=== PATIENT | male | born 1935 | race Caucasian/White ===

== ENCOUNTER 2020-09-23 20:38 | Emergency (ER) | payer MEDICARE ==
[~2020-09-23] VITALS: Ht 198.1 cm; Wt 84.1 kg
[~2020-09-23 20:38] MED LIST: NO HOME MEDS
[2020-09-23 20:53] VITALS: BP 131/69
[2020-09-23 21:18] LABS: BASOPHILS % (AUTO) 0.6 % (0-1); EOSINOPHILS # (AUTO) 0.3 X10'3 (0-0.9); EOSINOPHILS % (AUTO) 4.9 % (0-6); HEMATOCRIT 37.8 % (42.0-52.0); HEMOGLOBIN 12.3 g/dl (14.0-17.9); LYMPHOCYTES % (AUTO) 17.6 % (21-51); MEAN CORPUSCULAR HEMOGLOBIN 32.2 PG (27.0-31.0); MEAN CORPUSCULAR HGB CONC 32.7 g/dL (33.0-36.5); MEAN CORPUSCULAR VOLUME 98.6 FL (78-98); MONOCYTES # (AUTO) 0.5 X10'3 (0-0.9); MONOCYTES % (AUTO) 8.7 % (2-12); NEUTROPHILS # (AUTO) 4.1 X10'3 (1.8-7.7); NEUTROPHILS % (AUTO) 68.2 % (42-75); PLATELET COUNT 240 X10'3 (140-440); RED BLOOD COUNT 3.83 X10'6 (4.70-6.10); RED CELL DISTRIBUTION WIDTH 13.9 % (11.5-14.5); WHITE BLOOD COUNT 5.9 X10'3 (4.5-11.0)
[2020-09-23 21:30] LABS: ALANINE AMINOTRANSFERASE 24 U/L (12-78); ALBUMIN 3.3 G/DL (3.4-5.0); ALBUMIN/GLOBULIN RATIO 0.8 (1.1-1.5); ALKALINE PHOSPHATASE 165 IU/L (46-116); ANION GAP 9 (8-16); ASPARTATE AMINO TRANSFERASE 20 U/L (10-37); BILIRUBIN,TOTAL 0.4 MG/DL (0.1-1.0); BLOOD UREA NITROGEN 33 MG/DL (7-18); BUN/CREATININE RATIO 22.6 (5.4-32.0); CALCIUM 8.1 MG/DL (8.5-10.1); CHLORIDE 107 MMOL/L (99-107); CREATININE 1.46 MG/DL (0.60-1.10); GLUCOSE 99 MG/DL (70-104); LIPASE 154 U/L (73-393); POTASSIUM 4.5 MMOL/L (3.5-5.1); SODIUM 142 MMOL/L (135-145); TOTAL CARBON DIOXIDE 26.5 MMOL/L (24-32); TOTAL PROTEIN 7.4 G/DL (6.4-8.2); eGFR 46 ML/MIN
--- NOTE | 2020-09-23 22:53 | NUR ---
Pt had a stool, it was soft and formed and no liquid at all and did not smell like C diff. made aware that sample is not c diff worthy.
== END 2020-09-23 23:10 | disposition home or self-care (01) ==
LOC: ER 20:40
DX: R19.7 Diarrhea, unspecified (principal); Z98.890 Other specified postprocedural states
CPT/HCPCS: 36415; 80053; 83690; 85025; 99284

== ENCOUNTER 2022-03-02 09:50 | Outpatient (CLI) | payer MEDICARE ==
[~2022-03-02] VITALS: Ht 198.1 cm; Wt 90.7 kg
[~2022-03-02 09:50] MED LIST changes: +COLE1TAB2 PO; +FER325T PO; +LACT1CAP26 PO; +LISI10TA27 PO; -NO HOME MEDS
[2022-03-02 11:28] LABS: CLARITY,URINE CLEAR (Clear); COLOR,URINE YELLOW (Yellow); GLUCOSE, URINE NEGATIVE (Neg); KETONES,URINE NEGATIVE (Neg); LEUKOCYTE ESTERASE ,URINE NEGATIVE (Neg); NITRITES, URINE NEGATIVE (Neg); OCCULT BLOOD,URINE TRACE-INTACT (Neg); PROTEIN,URINE NEGATIVE (Neg); UROBILINOGEN,URINE 0.2 E.U/dL (0.2-1.0)
[2022-03-02 11:31] LABS: BASOPHILS % (AUTO) 0.7 % (0-1); EOSINOPHILS # (AUTO) 0.2 X10'3 (0-0.9); EOSINOPHILS % (AUTO) 4.2 % (0-6); LYMPHOCYTES # (AUTO) 0.8 X10'3 (1.1-4.8); MEAN CORPUSCULAR HEMOGLOBIN 32.7 PG (27.0-31.0); MEAN CORPUSCULAR HGB CONC 33.4 g/dL (33.0-36.5); MEAN PLATELET VOLUME 7.3 FL (7.4-10.4); MONOCYTES # (AUTO) 0.4 X10'3 (0-0.9); MONOCYTES % (AUTO) 8.2 % (2-12); NEUTROPHILS # (AUTO) 3.3 X10'3 (1.8-7.7); NEUTROPHILS % (AUTO) 69.9 % (42-75); PRE OP HEMATOCRIT 32.2 % (42.0-52.0); PRE OP PLATELET COUNT 210 X10'3 (140-440); RED BLOOD COUNT 3.28 X10'6 (4.70-6.10)
[2022-03-02 11:33] LABS: PRE OP HEMOGLOBIN 10.7 g/dL (14.0-17.9)
[2022-03-02 11:43] LABS: ALBUMIN 3.8 G/DL (3.4-5.0); ALKALINE PHOSPHATASE 70 IU/L (46-116); BLOOD UREA NITROGEN 30 MG/DL (7-18); BUN/CREATININE RATIO 19.2 (5.4-32.0); CALCIUM 8.7 MG/DL (8.5-10.1); CHLORIDE 110 MMOL/L (99-107); CREATININE 1.56 MG/DL (0.60-1.10); PRE OP ALT 19 U/L (30-65); PRE OP ANION GAP 8 (8-16); PRE OP AST 22 U/L (10-37); PRE OP BILIRUB, TOTAL 0.4 MG/DL (0.0-1.0); PRE OP GLUCOSE 88 MG/DL (70-104); PRE OP POTASSIUM 5.9 MMOL/L (3.4-5.1); PRE OP SODIUM 139 MMOL/L (135-145); TOTAL CARBON DIOXIDE 21.4 MMOL/L (24-32); TOTAL PROTEIN 7.6 G/DL (6.4-8.2); eGFR 42 ML/MIN
[2022-03-02 12:02] LABS: UA COLLECTION TYPE VOIDED
[2022-03-02 12:04] LABS: AMORPHOUS URATES 1+; BACTERIA,URINE NONE SEEN /HPF (Neg); RBC,URINE 0-2 /HPF (0-2); SQUAMOUS EPITHELIAL CELL,UR FEW /LPF (FEW); WBC,URINE NONE SEEN /HPF (0-4)
[2022-03-02 12:05] LABS: HYALINE CASTS 0-3 /LPF (NEGATIVE)
[2022-03-09] MEDS ORDERED: ringers solution, lacted 1,000 ML IV SCH (05:00)
[2022-03-09] MEDS ORDERED: famotidine 20mg tablet PO ONE (05:30)
[2022-03-09] MEDS ORDERED: ceFAZolin inj. 2,000 MG in dextrose 5%-water 100 ML IV ONE (05:30)
[2022-03-14] MEDS ORDERED: AMLO5TAB4 PO (15:23)
[2022-03-28] MEDS ORDERED: FOLI0.8C PO (09:44)
== END 2022-03-02 23:59 | disposition home or self-care (01) ==
LOC: PRE-OP 09:50 → EDSTATUS 03-09 13:30
PROVIDERS: ATTEND Surgery
DX: Z01.812 Encounter for preprocedural laboratory examination (principal); K40.91 Unilateral inguinal hernia, without obstruction or gangrene, recurrent
CPT/HCPCS: 36415; 80053; 81001; 85025; 87811; J0690; J7060; J7120

== ENCOUNTER 2022-03-13 17:24 | Observation (INO) | payer MEDICARE ==
[~2022-03-13] VITALS: Ht 198.1 cm; Wt 86.4 kg
[~2022-03-13 17:24] MED LIST changes: -FER325T PO; -LACT1CAP26 PO
[2022-03-13 18:14] LABS: BASOPHILS % (AUTO) 0.7 % (0-1); EOSINOPHILS # (AUTO) 0.2 X10'3 (0-0.9); EOSINOPHILS % (AUTO) 4.7 % (0-6); HEMATOCRIT 32.8 % (42.0-52.0); HEMOGLOBIN 10.9 g/dl (14.0-17.9); LYMPHOCYTES # (AUTO) 0.9 X10'3 (1.1-4.8); LYMPHOCYTES % (AUTO) 22.1 % (21-51); MEAN CORPUSCULAR HEMOGLOBIN 32.5 PG (27.0-31.0); MEAN CORPUSCULAR HGB CONC 33.3 g/dL (33.0-36.5); MEAN CORPUSCULAR VOLUME 97.7 FL (78-98); MEAN PLATELET VOLUME 7.3 FL (7.4-10.4); MONOCYTES # (AUTO) 0.4 X10'3 (0-0.9); MONOCYTES % (AUTO) 10.2 % (2-12); NEUTROPHILS # (AUTO) 2.6 X10'3 (1.8-7.7); NEUTROPHILS % (AUTO) 62.3 % (42-75); PLATELET COUNT 227 X10'3 (140-440); RED BLOOD COUNT 3.36 X10'6 (4.70-6.10); RED CELL DISTRIBUTION WIDTH 15.3 % (11.5-14.5); WHITE BLOOD COUNT 4.2 X10'3 (4.5-11.0)
[2022-03-13 18:24] LABS: ALANINE AMINOTRANSFERASE 23 U/L (12-78); ALBUMIN 3.8 G/DL (3.4-5.0); ALKALINE PHOSPHATASE 77 IU/L (46-116); ANION GAP 5 (8-16); ASPARTATE AMINO TRANSFERASE 18 U/L (10-37); BILIRUBIN,TOTAL 0.3 MG/DL (0.1-1.0); BLOOD UREA NITROGEN 44 MG/DL (7-18); CALCIUM 8.8 MG/DL (8.5-10.1); CHLORIDE 112 MMOL/L (99-107); CREATININE 1.76 MG/DL (0.60-1.10); GLUCOSE 99 MG/DL (70-104); SODIUM 140 MMOL/L (135-145); TOTAL CARBON DIOXIDE 22.9 MMOL/L (24-32); TOTAL PROTEIN 7.5 G/DL (6.4-8.2); eGFR 37 ML/MIN
[2022-03-13 18:28] LABS: POTASSIUM 6.6 MMOL/L (3.5-5.1)
[2022-03-13] MEDS ORDERED: albuterol 2.5 MG/3 ML nebule CONTNEB ONE (18:45)
[2022-03-13] MEDS ORDERED: sodium polystyrene sulfonate 15gm/60ml oral suspension PO ONE ×2 (18:45→22:05)
[2022-03-13] MEDS ORDERED: insulin regular, human 10 units/0.1 ml syringe IV ONE (18:50)
[2022-03-13] MEDS ORDERED: dextrose 50%-water 50ml dispensing syringe IV ONE (18:50)
[2022-03-13 22:00] LABS: ALBUMIN 3.6 G/DL (3.4-5.0); ANION GAP 10 (8-16); BLOOD UREA NITROGEN 41 MG/DL (7-18); BUN/CREATININE RATIO 23.7 (5.4-32.0); CALCIUM 8.7 MG/DL (8.5-10.1); CHLORIDE 112 MMOL/L (99-107); CREATININE 1.73 MG/DL (0.60-1.10); GLUCOSE 85 MG/DL (70-104); POTASSIUM 5.6 MMOL/L (3.5-5.1); SODIUM 142 MMOL/L (135-145); TOTAL CARBON DIOXIDE 19.7 MMOL/L (24-32); eGFR 38 ML/MIN
[2022-03-13] MEDS ORDERED: PSYL3.4P5 PO (22:59)
[2022-03-13] MEDS ORDERED: CYAN-34 PO (22:59)
[2022-03-13] MEDS ORDERED: LOPE-144 PO (22:59)
[2022-03-13] MEDS ORDERED: ondansetron/PF 4mg/2ml inj IV PRN (23:05)
[2022-03-13] MEDS ORDERED: amLODIPine 5mg tablet PO ONE (23:10)
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
[2022-03-13] MEDS: normal saline 1000ml 1,000 ML IV SCH (23:37)
--- NOTE | 2022-03-13 23:54 | NUR ---
PT WAITING FOR TAXI RIDE
[2022-03-14 08:09] LABS: BASOPHILS % (AUTO) 0.5 % (0-1); HEMATOCRIT 30.8 % (42.0-52.0); HEMOGLOBIN 10.3 g/dl (14.0-17.9); LYMPHOCYTES # (AUTO) 0.8 X10'3 (1.1-4.8); LYMPHOCYTES % (AUTO) 18.2 % (21-51); MEAN CORPUSCULAR HEMOGLOBIN 32.6 PG (27.0-31.0); MEAN CORPUSCULAR HGB CONC 33.2 g/dL (33.0-36.5); MEAN PLATELET VOLUME 7.1 FL (7.4-10.4); MONOCYTES # (AUTO) 0.4 X10'3 (0-0.9); MONOCYTES % (AUTO) 9.1 % (2-12); NEUTROPHILS # (AUTO) 3.2 X10'3 (1.8-7.7); NEUTROPHILS % (AUTO) 71.2 % (42-75); PLATELET COUNT 197 X10'3 (140-440); RED BLOOD COUNT 3.15 X10'6 (4.70-6.10); RED CELL DISTRIBUTION WIDTH 15.2 % (11.5-14.5); WHITE BLOOD COUNT 4.5 X10'3 (4.5-11.0)
[2022-03-14 08:31] LABS: ALANINE AMINOTRANSFERASE 19 U/L (12-78); ALBUMIN 3.3 G/DL (3.4-5.0); ALKALINE PHOSPHATASE 63 IU/L (46-116); ANION GAP 9 (8-16); ASPARTATE AMINO TRANSFERASE 16 U/L (10-37); BILIRUBIN,TOTAL 0.3 MG/DL (0.1-1.0); BLOOD UREA NITROGEN 34 MG/DL (7-18); BUN/CREATININE RATIO 23.8 (5.4-32.0); CALCIUM 8.1 MG/DL (8.5-10.1); CHLORIDE 114 MMOL/L (99-107); CREATININE 1.43 MG/DL (0.60-1.10); GLUCOSE 102 MG/DL (70-104); POTASSIUM 5.5 MMOL/L (3.5-5.1); SODIUM 142 MMOL/L (135-145); TOTAL CARBON DIOXIDE 18.9 MMOL/L (24-32); TOTAL PROTEIN 6.7 G/DL (6.4-8.2); eGFR 47 ML/MIN
[2022-03-14] MEDS: normal saline 1000ml 1,000 ML IV SCH (09:40)
[2022-03-14] MEDS ORDERED: sodium polystyrene sulfonate 15gm/60ml oral suspension PO ONE (09:45)
[2022-03-14 14:04] VITALS: BP 152/84
[2022-03-14 14:48] LABS: ALANINE AMINOTRANSFERASE 20 U/L (12-78); ALBUMIN 3.4 G/DL (3.4-5.0); ALKALINE PHOSPHATASE 67 IU/L (46-116); ANION GAP 10 (8-16); ASPARTATE AMINO TRANSFERASE 18 U/L (10-37); BILIRUBIN,TOTAL 0.3 MG/DL (0.1-1.0); BLOOD UREA NITROGEN 30 MG/DL (7-18); BUN/CREATININE RATIO 18.5 (5.4-32.0); CALCIUM 8.2 MG/DL (8.5-10.1); CHLORIDE 113 MMOL/L (99-107); CREATININE 1.62 MG/DL (0.60-1.10); GLUCOSE 85 MG/DL (70-104); POTASSIUM 4.5 MMOL/L (3.5-5.1); SODIUM 145 MMOL/L (135-145); TOTAL PROTEIN 6.9 G/DL (6.4-8.2); eGFR 41 ML/MIN
[2022-03-14] MEDS ORDERED: AMLO5TAB4 PO (15:23)
== END 2022-03-13 23:56 | disposition home or self-care (01) ==
LOC: ER 17:25 → ED HOLD 23:10
PROVIDERS: ADMIT Internal Medicine; ATTEND Family Medicine
DX: E87.5 Hyperkalemia (principal); C43.4 Malignant melanoma of scalp and neck; I12.9 Hypertensive chronic kidney disease with stage 1 through stage 4 chronic kidney disease, or unspecified chronic kidney disease; N18.30 Chronic kidney disease, stage 3 unspecified; Z79.899 Other long term (current) drug therapy
CPT/HCPCS: 36415; 80048; 80053; 82948; 85025; 93005; 94640; 94760; 96374; 96375; 99284; G0378; J1815; J3490; J7030; A7015

== ENCOUNTER 2022-03-30 09:43 | Day surgery (SDC) | payer MEDICARE ==
[2022-03-28 10:07] LABS: CLARITY,URINE CLEAR (Clear); COLOR,URINE YELLOW (Yellow); GLUCOSE, URINE NEGATIVE (Neg); KETONES,URINE NEGATIVE (Neg); LEUKOCYTE ESTERASE ,URINE NEGATIVE (Neg); NITRITES, URINE NEGATIVE (Neg); OCCULT BLOOD,URINE TRACE-INTACT (Neg); PROTEIN,URINE NEGATIVE (Neg); UROBILINOGEN,URINE 0.2 E.U/dL (0.2-1.0)
[2022-03-28 10:09] LABS: BASOPHILS % (AUTO) 0.6 % (0-1); EOSINOPHILS # (AUTO) 0.2 X10'3 (0-0.9); EOSINOPHILS % (AUTO) 5.2 % (0-6); LYMPHOCYTES # (AUTO) 0.8 X10'3 (1.1-4.8); LYMPHOCYTES % (AUTO) 16.5 % (21-51); MEAN CORPUSCULAR HEMOGLOBIN 32.7 PG (27.0-31.0); MEAN CORPUSCULAR HGB CONC 33.7 g/dL (33.0-36.5); MEAN CORPUSCULAR VOLUME 96.9 FL (78-98); MONOCYTES # (AUTO) 0.4 X10'3 (0-0.9); MONOCYTES % (AUTO) 8.2 % (2-12); NEUTROPHILS # (AUTO) 3.2 X10'3 (1.8-7.7); NEUTROPHILS % (AUTO) 69.5 % (42-75); PRE OP HEMATOCRIT 33.2 % (42.0-52.0); PRE OP HEMOGLOBIN 11.2 g/dL (14.0-17.9); PRE OP PLATELET COUNT 236 X10'3 (140-440); RED BLOOD COUNT 3.43 X10'6 (4.70-6.10)
[2022-03-28 10:11] LABS: UA COLLECTION TYPE CLN CATCH MIDSTREAM
[2022-03-28 10:14] LABS: BACTERIA,URINE FEW /HPF (Neg); MUCUS STRANDS FEW /LPF (Neg); RBC,URINE NONE SEEN /HPF (0-2); SQUAMOUS EPITHELIAL CELL,UR FEW /LPF (FEW); WBC,URINE 0-4 /HPF (0-4)
[2022-03-28 10:39] LABS: ALBUMIN 3.9 G/DL (3.4-5.0); ALKALINE PHOSPHATASE 89 IU/L (46-116); BLOOD UREA NITROGEN 38 MG/DL (7-18); BUN/CREATININE RATIO 24.8 (5.4-32.0); CALCIUM 8.9 MG/DL (8.5-10.1); CHLORIDE 109 MMOL/L (99-107); CREATININE 1.53 MG/DL (0.60-1.10); PRE OP ALT 27 U/L (30-65); PRE OP ANION GAP 9 (8-16); PRE OP AST 23 U/L (10-37); PRE OP BILIRUB, TOTAL 0.4 MG/DL (0.0-1.0); PRE OP GLUCOSE 91 MG/DL (70-104); PRE OP POTASSIUM 5.1 MMOL/L (3.4-5.1); PRE OP SODIUM 140 MMOL/L (135-145); TOTAL CARBON DIOXIDE 21.7 MMOL/L (24-32); eGFR 43 ML/MIN
[~2022-03-30] VITALS: Ht 198.1 cm; Wt 85.4 kg
[2022-03-30] VITALS (21 sets, daily range): BP systolic 125–168; BP diastolic 61–102
[~2022-03-30 09:43] MED LIST changes: +AMLO5TAB4 PO; +FOLI0.8C PO; -LISI10TA27 PO; +LOPE-144 PO; +PSYL3.4P5 PO; +ceFAZolin inj. 2,000 MG in dextrose 5%-water 100 ML IV ONE; +famotidine 20mg tablet PO ONE; +ringers solution, lacted 1,000 ML IV SCH
[2022-03-30] MEDS ORDERED: normal saline 500ml IV soln 500 ML IV SCH (10:45)
[2022-03-30] MEDS ORDERED: sevoflurane 250ml liquid IH ONE (12:28)
[2022-03-30] MEDS ORDERED: midazolam 1 mg/ML 2ml injection ONE (12:31)
[2022-03-30] MEDS ORDERED: fentaNYL/PF 50MCG/1 ML 2ML syringe ONE (12:31)
[2022-03-30] MEDS ORDERED: dexamethasone sod phosphate 4mg/ml inj. ONE (12:55)
[2022-03-30] MEDS ORDERED: rocuronium 10mg/ml inj IV ONE (12:56)
[2022-03-30] MEDS ORDERED: LIDOcaine 2% (20mg/ml) 5ml vial ONE (12:56)
[2022-03-30] MEDS ORDERED: ondansetron/PF 4mg/2ml inj ONE (12:56)
[2022-03-30] MEDS ORDERED: propofol inj 20 ML IV ONE (12:56)
[2022-03-30] MEDS ORDERED: BUPIVAcaine/PF 2.5 mg/ml (0.25%) 30ml vial ONE (13:02)
[2022-03-30] MEDS ORDERED: morphine 10mg/ml inj. ONE (13:29)
[2022-03-30] MEDS ORDERED: glycopyrrolate 0.2mg/ml inj ONE ×2 (14:05→14:10)
[2022-03-30] MEDS ORDERED: neostigmine methylsulfate 1 MG/ML 10ml vial ONE ×2 (14:05→14:10)
--- NOTE | 2022-03-30 14:26 | NUR ---
RECEIVED PT FROM THE OPERATING ROOM IN STABLE CONDITION REPORT RECEIVED FROM DR WELLINGTON ANESTHESIOLOGIST. PT ATTACHED TO CARDIAC, BP, AND PULSE OX MONITORS
[2022-03-30] MEDS ORDERED: morphine 2 MG/ML inj. syringe IV PRN (14:30)
[2022-03-30] MEDS ORDERED: HYDROmorphone/PF 0.2 MG/ML SYRINGE IV PRN ×2 (14:30)
[2022-03-30] MEDS ORDERED: acetaminophen 1,000mg/100ml IV 100 ML IV PRN (14:30)
[2022-03-30] MEDS ORDERED: ondansetron/PF 4mg/2ml inj IV PRN (14:30)
[2022-03-30] MEDS ORDERED: ringers solution, lacted 1,000 ML IV SCH (14:30)
[2022-03-30] MEDS ORDERED: labetalol 20mg/4ml (5mg/ml) syringe IV PRN (14:30)
[2022-03-30] MEDS ORDERED: morphine 4 MG/ML inj SYRINge IV PRN (14:30)
[2022-03-30] MEDS ORDERED: meperidine/PF 25mg/ml syringe IV PRN (14:30)
[2022-03-30] MEDS ORDERED: hydrALAZINE 20mg/ml inj. IV PRN (14:30)
[2022-03-30] MEDS ORDERED: proCHLORperazine 10 MG/2 ml inj IV PRN (14:30)
--- NOTE | 2022-03-30 15:57 | NUR ---
SPOKE TO PTS - UPDATE GIVEN
--- NOTE | 2022-03-30 16:48 | NUR ---
PT DRESSED AND TAKEN VIA WHEELCHAIR TO THE BATHROOM, UNABLE TO URINE, BLADDER SCANNER USED SHOWS ONLY 139CC OF URINE INPLACE
--- NOTE | 2022-03-30 17:50 | NUR ---
PT ATTEMPTED TO URINE, UNSUCCESSFUL, BLADDER SCANNER SHOWS OVER 300CC , 18 FR MULLER CATHETER INSERTED BY RICK THOMAS WITHOUT DIFFICULTY. F/C PLACED PER PROTOCOL WITH NO COMPLICATIONS DUE TO PATIENT BEING UNABLE TO VOID AND OVER 300CC IN BLADDER SCAN. GOOD OUTPUT OF URINE FROM F/C WITH CLEAR YELLOW URINE. I HAVE DEMONSTRATED F/C CARE AND PATIENT HAS VERBALIZED UNDERSTANDING ON HOME CARE. EDUCATION PACKET GIVEN TO PATIENT WELL FOR F/C MANAGEMENT FOR HOME. PATIENT AGREES HE WILL CALL DR RAJAN OFFICE IN AM FOR F/C D/C APPT IN OFFICE. ADDITIONAL EDUCATION GIVEN TO PTS WHEN SHE PICKED UP HER BY QUINTON THOMAS
== END 2022-03-30 18:26 | disposition home or self-care (01) ==
LOC: PAS 09:43
PROVIDERS: ATTEND Surgery
DX: K40.90 Unilateral inguinal hernia, without obstruction or gangrene, not specified as recurrent (principal); M19.90 Unspecified osteoarthritis, unspecified site; I12.9 Hypertensive chronic kidney disease with stage 1 through stage 4 chronic kidney disease, or unspecified chronic kidney disease; N18.5 Chronic kidney disease, stage 5; D64.9 Anemia, unspecified; F03.90 Unspecified dementia, unspecified severity, without behavioral disturbance, psychotic disturbance, mood disturbance, and anxiety; Z80.8 Family history of malignant neoplasm of other organs or systems; Z79.899 Other long term (current) drug therapy; Z98.890 Other specified postprocedural states
CPT/HCPCS: 36415; 49650; 80053; 81001; 82948; 85025; C1758; C1781; J0690; J1100; J2250; J2270; J2274; J2405; J2704; J2710; J3010; J3490; J7030; J7040; J7060; J7120; Z7506; Z7508; Z7512; A4215; A4314; A4618